=== PATIENT | male | born 1990 | race Caucasian/White ===

== ENCOUNTER 2020-09-07 19:43 | Emergency (ER) | payer OTHER ==
[~2020-09-07] VITALS: Ht 172.7 cm; Wt 90.7 kg
[2020-09-07] MEDS ORDERED: VENTOLIN HFA 1818 GM INH (20:42)
[2020-09-07 20:48] VITALS: BP 144/74
== END 2020-09-07 20:48 | disposition home or self-care (01) ==
LOC: M.ERS 19:43
DX: U07.1 COVID-19 (principal)